=== PATIENT | male | born 1965 | race Two or more races ===

== ENCOUNTER 2019-05-01 23:37 | Emergency (ER) | payer SELFPAY ==
[~2019-05-01] VITALS: Ht 162.6 cm; Wt 136.1 kg
[~2019-05-01 23:37] MED LIST: NKM; ZYRTEC10 MG ORAL
[2019-05-01 23:45] VITALS: BP 162/84
--- NOTE | 2019-05-01 23:45 | NUR ---
ED Nurse Note: Patient walked in to ED c/o abdominal pain, nausea and vomiting S/P ETOH yesterday at 2200. Reports epigastric pain. Denies diarrhea. No episodes of vomiting at this time. Afebrile. Not in any distress.
--- NOTE | 2019-05-01 23:55 | NUR ---
ED Nurse Note: IV line established. Blood and urine specimen collected and sent to lab.
[2019-05-02] MEDS ORDERED: Pantoprazole Inj IV ONE
--- NOTE | 2019-05-02 00:01 | Emergency Room Report ---
History of Present Illness General Chief Complaint: Abdominal Pain Source: Patient Present Illness HPI This is a 54-year-old male who is an alcoholic. He has been in rehab before. He presents with complaint is abdominal pain with nausea and vomiting. Last drink was 4 hours prior to arrival. He complained of epigastric pain and rating to the throat. Multiple episode of vomiting. Pain is sharp and burning. Pain is 8 out of 10. No diarrhea. No trauma. Similar symptom in the past. No other drug use. Allergies: Coded Allergies: No Known Allergies (Unverified , 08/26/12) Patient History Past Medical History: see triage record, old chart reviewed Past Surgical History: none Pertinent Family History: none Social History: Reports: alcohol use Immunizations: other Reviewed Nursing Documentation: PMH: Agreed; PSxH: Agreed Nursing Documentation-PMH Past Medical History: No History, Except For Review of Systems Eye: Denies: eye pain, blurred vision ENT: Denies: ear pain, nose congestion, throat swelling Respiratory: Denies: cough, shortness of breath Cardiovascular: Denies: chest pain, palpitations Gastrointestinal: Reports: abdominal pain, nausea, vomiting; Denies: diarrhea Musculoskeletal: Denies: back pain, joint pain Skin: Denies: rash Neurological: Denies: headache, numbness Endocrine: Denies: increased thirst, increased urine Hematologic/Lymphatic: Denies: easy bruising All Other Systems: negative except mentioned in HPI Physical Exam Vital Signs Date Time Temp Pulse Resp B/P (MAP) Pulse Ox O2 Delivery O2 Flow Rate FiO2 05/01/19 23:39 99.1 112 14 162/84 (110) 97 Room Air Vitals with high blood pressure Sp02 EP Interpretation: reviewed, normal General Appearance: well appearing, no apparent distress, alert Head: normocephalic, atraumatic Eyes: bilateral eye PERRL, bilateral eye EOMI ENT: hearing grossly normal, normal pharynx Neck: full range of motion, supple, no meningismus Respiratory: chest non-tender, lungs clear, normal breath sounds Cardiovascular #1: regular rate, rhythm, no murmur Gastrointestinal: normal bowel sounds, no mass, no organomegaly, no bruit, non- distended, tenderness - Epigastric, mild Musculoskeletal: back normal, normal range of motion, gait/station normal Psychiatric: mood/affect normal Medical Decision Making Diagnostic Impression: Primary Impression: Abdominal pain Qualified Codes: R10.13 - Epigastric pain Additional Impressions: Nausea & vomiting Qualified Codes: R11.2 - Nausea with vomiting, unspecified Alcohol abuse Diabetes Qualified Codes: E11.9 - Type 2 diabetes mellitus without complications ER Course Patient presents with epigastric pain with nausea and vomiting. This is probably secondary to alcoholic gastritis. Pain is improved. No longer vomiting. He did say that he had a history of diabetes but not on medication. There is no evidence of DKA or severe dehydration. We will put him on medication for this. No evidence of acute abdomen. We discharged home. Last Vital Signs Date Time Temp Pulse Resp B/P (MAP) Pulse Ox O2 Delivery O2 Flow Rate FiO2 05/01/19 23:39 99.1 112 14 162/84 (110) 97 Room Air Status: improved Disposition: HOME, SELF-CARE Condition: Stable Scripts Metformin Hcl* (GLUCOPHAGE*) 500 Mg Tablet 500 MG ORAL TWICE A DAY, #60 TAB Prov: Henrik Norris MD 05/02/19 Chlordiazepoxide (Chlordiazepoxide HCl) 25 Mg Capsule 25 MG ORAL THREE TIMES A DAY, #21 CAP 0 Refills Prov: Henrik Norris MD 05/02/19 Omeprazole Magnesium (PRILOSEC OTC) 20 Mg Tablet. 20 MG ORAL DAILY, #30 TAB Prov: Henrik Norris MD 05/02/19 Referrals: NOT CHOSEN CRISTO/,REFERRING (PCP) Additional Instructions: Follow-up with in 7 days. Go to rehab for alcohol abuse. Return if symptoms worsen. Henrik Norris MD May 02, 2019 00:01
[2019-05-02 00:25] LABS: APPEARANCE,URINE CLEAR; BILIRUBIN, URINE NEGATIVE (NEGATIVE); COLOR,URINE PALE YELLOW; GLUCOSE, URINE (UA) 4+ (NEGATIVE); KETONES,URINE NEGATIVE (NEGATIVE); LEUKOCYTE ESTERASE ,URINE NEGATIVE (NEGATIVE); NITRITE,URINE NEGATIVE (NEGATIVE); PH,URINE 6 (4.5-8.0); PROTEIN,URINE NEGATIVE (NEGATIVE); UROBILINOGEN,URINE NORMAL MG/DL (0.0-1.0)
[2019-05-02 00:32] LABS: BASOPHILS % (AUTO) 1.7 % (0.0-2.0); EOSINOPHILS % (AUTO) 2.1 % (0.0-3.0); HEMATOCRIT 44.3 % (42.0-52.0); HEMOGLOBIN 15.5 G/DL (14.2-18.0); LYMPHOCYTES % (AUTO) 40.2 % (20.0-45.0); MEAN CORPUSCULAR VOLUME 87 FL (80-99); MONOCYTES % (AUTO) 8.1 % (1.0-10.0); NEUTROPHILS % (AUTO) 47.9 % (45.0-75.0); PLATELET COUNT 177 K/UL (150-450); RED CELL DISTRIBUTION WIDTH 12.1 % (11.6-14.8); WHITE BLOOD COUNT 7.6 K/UL (4.8-10.8)
[2019-05-02 00:36] LABS: ANION GAP 13 mmol/L (5-15); BLOOD UREA NITROGEN 13 mg/dL (7-18); CALCIUM 8.8 MG/DL (8.5-10.1); CARBON DIOXIDE 23 MMOL/L (21-32); CHLORIDE 102 MMOL/L (98-107); CREATININE 0.9 MG/DL (0.55-1.30); POTASSIUM 3.7 MMOL/L (3.5-5.1); SODIUM 138 MMOL/L (136-145)
[2019-05-02 00:41] LABS: ALANINE AMINOTRANSFERASE 52 U/L (12-78); ALBUMIN 3.6 G/DL (3.4-5.0); ALBUMIN/GLOBULIN RATIO 0.9 (1.0-2.7); ALKALINE PHOSPHATASE 207 U/L (46-116); ASPARTATE AMINO TRANSFERASE 16 U/L (15-37); BILIRUBIN,TOTAL 0.3 MG/DL (0.2-1.0)
[2019-05-02] MEDS ORDERED: LIBRIUM25 MG ORAL (01:30)
[2019-05-02] MEDS ORDERED: PRILOSEC OTC20 MG ORAL (01:30)
[2019-05-02] MEDS ORDERED: GLUCOPHAGE500 MG ORAL (01:30)
[2019-05-02] MEDS ORDERED: chlordiazePOXIDE 25mg Cap ONE (01:33)
[2019-05-02 01:38] VITALS: BP 135/78
--- NOTE | 2019-05-02 01:38 | NUR ---
ED Nurse Note: Pt cleared by ERMD for discharge. DC instructions/prescription was given and explained to pt and verbalized understanding of teachings. All medical deviecs such as ID band and IV line removed. Pt is AAO x4, ambulatory and left with all personal belongings. Accompanied by his .
[2019-05-02] MEDS ORDERED: chlordiazePOXIDE 25mg Cap ORAL ONE (01:45)
== END 2019-05-02 01:38 | disposition home or self-care (01) ==
LOC: EMR 23:53
DX: R10.13 Epigastric pain (principal); R11.2 Nausea with vomiting, unspecified; F10.10 Alcohol abuse, uncomplicated; E11.9 Type 2 diabetes mellitus without complications
CPT/HCPCS: 36415; 80053; 81003; 82962; 83690; 85025; 96361; 96374; 96375; 99284; C9113; J2405; J7030

== ENCOUNTER 2019-08-30 21:47 | Emergency (ER) | payer SELFPAY ==
[~2019-08-30] VITALS: Ht 157.5 cm; Wt 122.5 kg
[~2019-08-30 21:47] MED LIST changes: +GLUCOPHAGE500 MG ORAL; +LIBRIUM25 MG ORAL; +PRILOSEC OTC20 MG ORAL
--- NOTE | 2019-08-30 21:58 | NUR ---
ED Nurse pt presents to ED c/o epigastric pain that radiates to his back and abd. pt reports that he was diagnosed with DM recently and has not been "feeling well" pt has a h/o alcoholism but denies having any drinks for 1 week. pt states he was resting at the time of the pain which he rated a 7/10. 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
--- NOTE | 2019-08-30 22:01 | Emergency Room Report ---
History of Present Illness General Chief Complaint: Chest Pain Present Illness HPI Patient is a 54-year-old male presents after increased chest discomfort. Onset of symptoms 3 days ago. Intermittent episodes. These were improved with exertion. Reports having some increased anxious thoughts. Previous history of alcohol abuse. He states he has not had any alcohol for 1 month. Denies any vomiting or hematemesis. Denies any bloody stools. Pain begins in the upper abdomen and goes up to his chest. Denies any diarrhea. Denies any recent sick contacts. 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 Allergies: Coded Allergies: No Known Allergies (Unverified , 08/26/12) COVID-19 Screening Contact w/high risk pt: No Recent Travel to affected area: No Experienced COVID-19 symptoms?: No COVID-19 Testing performed REGISTERED DENTAL ASSISTANT: No Patient History Past Medical History: see triage record Reviewed Nursing Documentation: PMH: Agreed; PSxH: Agreed Nursing Documentation-PMH Hx Diabetes: Yes Review of Systems All Other Systems: negative except mentioned in HPI Physical Exam Vital Signs Date Time Temp Pulse Resp B/P (MAP) Pulse Ox O2 Delivery O2 Flow Rate FiO2 08/30/19 21:50 99.1 152/82 (105) Room Air Sp02 EP Interpretation: reviewed, normal General Appearance: normal inspection, well appearing, no apparent distress, alert, GCS 15, non-toxic, obese Head: atraumatic ENT: normal ENT inspection, hearing grossly normal, normal voice Neck: normal inspection, full range of motion, supple, no bony tend Respiratory: normal inspection, lungs clear, normal breath sounds, no respiratory distress, no retraction, no wheezing Cardiovascular #1: regular rate, rhythm, no edema Gastrointestinal: normal inspection, normal bowel sounds, non tender, soft, no guarding, no hernia Genitourinary: no CVA tenderness Musculoskeletal: normal inspection, back normal, normal range of motion Neurologic: alert, motor strength/tone normal, 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 Differential diagnosis include was not limited to myocardial infarction, alcohol withdrawal, gastritis, pancreatitis among others. Because of complexity of patient's case laboratory tests and imaging studies were ordered.Patient was noted to have initial oxygen saturation 100%. Denies any cough or respiratory symptoms suggesting this is a nonpulmonary origin. Patient has no exertional dyspnea and patient symptoms appear to be anxiety related. Laboratory testing was ordered to evaluate for possible pancreatitis due to a previous history of alcohol abuse. Patient appears to be low risk for cardiac chest pain based on history. Troponin was noted to be negative despite 3 days of constant pain. Patient's pain appears to be GI related due to a recent alcohol. Patient was noted to have some elevation his blood sugar and was advised dietary modification. He was advised to follow-up with his primary care physician for recheck and further cardiac work-up. He was advised to return if began having worsening pain persistent vomiting or other concerns. The patient is advised to follow up with primary care doctor in 1-2 days. Patient is advised to return if any worsening condition or if any changes in status that are concerning. This report is dictated with [employer] directory carrier software which may occasionally lead to discrepancies related to use of this software. Labs Test 08/30/19 22:11 08/30/19 22:45 White Blood Count 7.9 K/UL (4.8-10.8) Red Blood Count 5.15 M/UL (4.70-6.10) Hemoglobin 15.3 G/DL (14.2-18.0) Hematocrit 47.2 % (42.0-52.0) Mean Corpuscular Volume 92 FL (80-99) Mean Corpuscular Hemoglobin 29.7 PG (27.0-31.0) Mean Corpuscular Hemoglobin Concent 32.4 G/DL (32.0-36.0) Red Cell Distribution Width 13.6 % (11.6-14.8) Platelet Count 200 K/UL (150-450) Mean Platelet Volume 8.5 FL (6.5-10.1) Neutrophils (%) (Auto) 54.1 % (45.0-75.0) Lymphocytes (%) (Auto) 33.6 % (20.0-45.0) Monocytes (%) (Auto) 8.8 % (1.0-10.0) Eosinophils (%) (Auto) 1.3 % (0.0-3.0) Basophils (%) (Auto) 2.3 % (0.0-2.0) Sodium Level 140 MMOL/L (136-145) Potassium Level 3.4 MMOL/L (3.5-5.1) Chloride Level 104 MMOL/L (98-107) Carbon Dioxide Level 24 MMOL/L (21-32) Anion Gap 12 mmol/L (5-15) Blood Urea Nitrogen 19 mg/dL (7-18) Creatinine 1.1 MG/DL (0.55-1.30) Estimat Glomerular Filtration Rate > 60 mL/min (>60) Glucose Level 183 MG/DL (74-106) Calcium Level 8.4 MG/DL (8.5-10.1) Total Bilirubin 0.2 MG/DL (0.2-1.0) Aspartate Amino Transf (AST/SGOT) 34 U/L (15-37) Alanine Aminotransferase (ALT/SGPT) 115 U/L (12-78) Alkaline Phosphatase 141 U/L (46-116) Troponin I 0.000 ng/mL (0.000-0.056) Total Protein 7.4 G/DL (6.4-8.2) Albumin 4.2 G/DL (3.4-5.0) Globulin 3.2 g/dL Albumin/Globulin Ratio 1.3 (1.0-2.7) Lipase 173 U/L (73-393) Urine Color Pale yellow Urine Appearance Clear Urine pH 6 (4.5-8.0) Urine Specific [place] 1.025 (1.005-1.035) Urine Protein 1+ (NEGATIVE) Urine Glucose (UA) 3+ (NEGATIVE) Urine Ketones Negative (NEGATIVE) Urine Blood 1+ (NEGATIVE) Urine Nitrite Negative (NEGATIVE) Urine Bilirubin Negative (NEGATIVE) Urine Urobilinogen Normal MG/DL (0.0-1.0) Urine Leukocyte Esterase Negative (NEGATIVE) Urine RBC 0-2 /HPF (0 - 0) Urine WBC 0 /HPF (0 - 0) Urine Squamous Epithelial Cells None /LPF (NONE/OCC) Urine Bacteria None /HPF (NONE) EKG Diagnostic Results Rate: normal - 76 Rhythm: NSR ST Segments: no acute changes Last Vital Signs Date Time Temp Pulse Resp B/P (MAP) Pulse Ox O2 Delivery O2 Flow Rate FiO2 20 21:50 99.1 152/82 (105) Room Air Status: improved Disposition: HOME, SELF-CARE Condition: Stable Scripts Lorazepam* (ATIVAN*) 0.5 Mg Tablet 0.5 MG ORAL THREE TIMES A DAY for anxiety, #10 TAB Prov: Scott Rosenbaum MD 08/30/19 Omeprazole Magnesium (PRILOSEC OTC) 20 Mg Tablet. 20 MG ORAL DAILY, #20 TAB Prov: Scott Rosenbaum MD 08/30/19 Scott Rosenbaum MD Aug 30, 2019 22:01
[2019-08-30] MEDS ORDERED: Dicyclomine HCl 10mg/5ml oral soln ORAL ONE (22:30)
[2019-08-30] MEDS ORDERED: Mylanta II UD 30ml ORAL ONE (22:30)
[2019-08-30] MEDS ORDERED: Lidocaine 2% Visc 15ml soln ORAL ONE (22:30)
--- NOTE | 2019-08-30 22:35 | NUR ---
all blood work sent to lab. PO meds administered, pt tolerated well. urinal at bedside for urine collection when pt is able to provide a sample
[2019-08-30 22:48] LABS: BASOPHILS % (AUTO) 2.3 % (0.0-2.0); EOSINOPHILS % (AUTO) 1.3 % (0.0-3.0); HEMATOCRIT 47.2 % (42.0-52.0); HEMOGLOBIN 15.3 G/DL (14.2-18.0); LYMPHOCYTES % (AUTO) 33.6 % (20.0-45.0); MEAN CORPUSCULAR VOLUME 92 FL (80-99); MONOCYTES % (AUTO) 8.8 % (1.0-10.0); NEUTROPHILS % (AUTO) 54.1 % (45.0-75.0); PLATELET COUNT 200 K/UL (150-450); RED BLOOD COUNT 5.15 M/UL (4.70-6.10); RED CELL DISTRIBUTION WIDTH 13.6 % (11.6-14.8); WHITE BLOOD COUNT 7.9 K/UL (4.8-10.8)
[2019-08-30 22:55] LABS: ANION GAP 12 mmol/L (5-15); BLOOD UREA NITROGEN 19 mg/dL (7-18); CALCIUM 8.4 MG/DL (8.5-10.1); CARBON DIOXIDE 24 MMOL/L (21-32); CHLORIDE 104 MMOL/L (98-107); CREATININE 1.1 MG/DL (0.55-1.30); POTASSIUM 3.4 MMOL/L (3.5-5.1); SODIUM 140 MMOL/L (136-145)
[2019-08-30 22:58] LABS: ALANINE AMINOTRANSFERASE 115 U/L (12-78); ALBUMIN 4.2 G/DL (3.4-5.0); ALBUMIN/GLOBULIN RATIO 1.3 (1.0-2.7); ALKALINE PHOSPHATASE 141 U/L (46-116); ASPARTATE AMINO TRANSFERASE 34 U/L (15-37); BILIRUBIN,TOTAL 0.2 MG/DL (0.2-1.0)
[2019-08-30] MEDS ORDERED: ATIVAN0.5 MG ORAL (23:04)
[2019-08-30] MEDS ORDERED: PRILOSEC OTC20 MG ORAL (23:04)
[2019-08-30 23:12] LABS: APPEARANCE,URINE CLEAR; BILIRUBIN, URINE NEGATIVE (NEGATIVE); COLOR,URINE PALE YELLOW; GLUCOSE, URINE (UA) 3+ (NEGATIVE); KETONES,URINE NEGATIVE (NEGATIVE); LEUKOCYTE ESTERASE ,URINE NEGATIVE (NEGATIVE); PH,URINE 6 (4.5-8.0); PROTEIN,URINE 1+ (NEGATIVE); UROBILINOGEN,URINE NORMAL MG/DL (0.0-1.0)
[2019-08-30 23:15] LABS: NITRITE,URINE NEGATIVE (NEGATIVE)
[2019-08-31] VITALS: BP 146/88
--- NOTE | 2019-08-31 00:10 | NUR ---
ER DISCHARGE NOTE: Patient is cleared to be discharged per ERMD, pt is aox4, on room air, with stable vital signs. pt was given dc and prescription instructions, pt was able to verbalize understanding, pt id band and iv site removed without complications. pt is able to ambulate with steady gait. pt took all belongings.
[2019-08-31 00:15] VITALS: BP 146/88
--- NOTE | 2019-08-31 12:19 | Diagnostic Imaging Report ---
Procedure: XRAY Chest 1v Reason for study: Chest pain Comparison films: 03/15/2019. FINDINGS: A single one view chest is obtained. Vascularity is normal. The lung archer are clear bilaterally. Cardiac and mediastinal silhouette are within normal limits. CP angles are sharp. The bony thorax appear unremarkable. IMPRESSION: NO ACUTE CARDIOPULMONARY DISEASE.
== END 2019-08-31 00:15 | disposition home or self-care (01) ==
LOC: EMR 22:21
DX: R07.9 Chest pain, unspecified (principal); E11.9 Type 2 diabetes mellitus without complications; E66.9 Obesity, unspecified; Z68.42 Body mass index [BMI] 45.0-49.9, adult
CPT/HCPCS: 36415; 71045; 80053; 81003; 83690; 84484; 85025; 93005; 99283

== ENCOUNTER 2020-02-08 04:22 | Emergency (ER) | payer SELFPAY ==
[~2020-02-08] VITALS: Ht 157.5 cm; Wt 117.9 kg
[~2020-02-08 04:22] MED LIST changes: +ATIVAN0.5 MG ORAL
--- NOTE | 2020-02-08 04:40 | NUR ---
ED Nurse Note: Patient walked in from home c/o midepigastric abdominal pain for 3 days, aching 10/09. Patient reports it is worsened at night when lying supine. Patient aao x 4 and ambulatory with steady gait. Patient also reports decreased appetite, denies n/v/d. Patient changed into gown and placed on monitoring engineer. No acute distress noted during assessment.
--- NOTE | 2020-02-08 04:43 | Emergency Room Report ---
History of Present Illness General Chief Complaint: Abdominal Pain Source: Patient Present Illness HPI Patient is a 54-year-old male past medical history of diabetes who presents to the ER complaining of epigastric pain for the past 2 days. Patient denies any fever or chills. She denies any nausea or vomiting. She denies any dysuria or diarrhea. He states that he did not take any medications for this pain. He says is worse when eating. Patient states that he had a cold and cough which resolved 4 days ago. He denies having any chest pain or shortness of breath. Allergies: Coded Allergies: No Known Allergies (Unverified , 08/26/12) COVID-19 Screening Contact w/high risk pt: No Recent Travel to affected area: No Experienced COVID-19 symptoms?: No COVID-19 Testing performed PACKAGING INSPECTOR: No Patient History Reviewed Nursing Documentation: PMH: Agreed; PSxH: Agreed Nursing Documentation-[facility] Past Medical History: No History, Except For Hx Diabetes: Yes Review of Systems All Other Systems: negative except mentioned in HPI Physical Exam Vital Signs Date Time Temp Pulse Resp B/P (MAP) Pulse Ox O2 Delivery O2 Flow Rate FiO2 02/08/20 04:30 98.2 94 16 140/98 (112) 96 Room Air Sp02 EP Interpretation: reviewed, normal General Appearance: no apparent distress, alert, GCS 15, non-toxic Head: normocephalic, atraumatic Eyes: bilateral eye normal inspection, bilateral eye PERRL ENT: hearing grossly normal, normal pharynx, no angioedema, normal voice Neck: full range of motion, supple/symm/no masses Respiratory: chest non-tender, lungs clear, normal breath sounds, speaking full sentences Cardiovascular #1: regular rate, rhythm, no edema Gastrointestinal: other - Epigastric tenderness to palpation with no guarding or rebound Rectal: deferred Genitourinary: no CVA tenderness Musculoskeletal: normal range of motion 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 Patient also has history of flulike symptoms several days ago. Patient's vital signs are stable. Patient has been given IV fluids as well as 40 mg of IV Protonix. On reevaluation he states that his pain has improved. Patient's labs demonstrate no significant acute abnormalities. Patient has no elevated white blood cell count. Lipase is normal. LFTs are normal. UA demonstrates no evidence for UTI. Troponin is negative x1. Chest x-ray demonstrates no acute cardiopulmonary pathology. Patient is COVID-19 negative. EKG demonstrates no ST elevation. Patient is pending a CT of the abdomen pelvis to rule out any acute intra-abdominal patholo gy. Patient signed out to Dr. Tony at [address], reevaluation and final disposition. Laboratory Tests Test 02/08/20 04:37 02/08/20 04:55 02/08/20 04:58 02/08/20 05:36 White Blood Count 6.6 K/UL (4.8-10.8) Red Blood Count 5.48 M/UL (4.70-6.10) Hemoglobin 16.5 G/DL (14.2-18.0) Hematocrit 46.8 % (42.0-52.0) Mean Corpuscular Volume 85 FL (80-99) Mean Corpuscular Hemoglobin 30.1 PG (27.0-31.0) Mean Corpuscular Hemoglobin Concent 35.2 G/DL (32.0-36.0) Red Cell Distribution Width 14.3 % (11.6-14.8) Platelet Count 239 K/UL (150-450) Mean Platelet Volume 8.0 FL (6.5-10.1) Neutrophils (%) (Auto) 56.2 % (45.0-75.0) Lymphocytes (%) (Auto) 33.5 % (20.0-45.0) Monocytes (%) (Auto) 7.9 % (1.0-10.0) Eosinophils (%) (Auto) 0.8 % (0.0-3.0) Basophils (%) (Auto) 1.7 % (0.0-2.0) Prothrombin Time 11.3 SEC (9.30-11.50) Prothrombin Time INR 1.0 (0.9-1.1) Activated Partial Thromboplast Time 26 SEC (23-33) Sodium Level 140 MMOL/L (136-145) Potassium Level 3.5 MMOL/L (3.5-5.1) Chloride Level 104 MMOL/L (98-107) Carbon Dioxide Level 28 MMOL/L (21-32) Anion Gap 8 mmol/L (5-15) Blood Urea Nitrogen 16 mg/dL (7-18) Creatinine 1.0 MG/DL (0.55-1.30) Estimated Glomerular Filtration Rate > 60 mL/min (>60) Glucose Level 161 MG/DL (74-106) H Lactic Acid Level Pending Calcium Level 8.7 MG/DL (8.5-10.1) Magnesium Level 1.9 MG/DL (1.8-2.4) Total Bilirubin 0.6 MG/DL (0.2-1.0) Aspartate Amino Transferase (AST) 35 U/L (15-37) Alanine Aminotransferase (ALT) 90 U/L (12-78) H Alkaline Phosphatase 114 U/L (46-116) Troponin I Pending Total Protein 7.6 G/DL (6.4-8.2) Albumin 4.0 G/DL (3.4-5.0) Globulin 3.6 g/dL Albumin/Globulin Ratio 1.1 (1.0-2.7) Lipase 136 U/L (73-393) Acetone Level Pending Urine Color Yellow Urine Appearance Clear Urine pH 7 (4.5-8.0) Urine Specific [place] 1.015 (1.005-1.035) Urine Protein 2+ (NEGATIVE) H Urine Glucose (UA) Negative (NEGATIVE) Urine Ketones 1+ (NEGATIVE) H Urine Blood Negative (NEGATIVE) Urine Nitrite Negative (NEGATIVE) Urine Bilirubin Negative (NEGATIVE) Urine Urobilinogen Normal MG/DL (0.0-1.0) Urine Leukocyte Esterase Negative (NEGATIVE) Urine RBC 0-2 /HPF (0 - 0) H Urine WBC 0 /HPF (0 - 0) Urine Squamous Epithelial Cells None /LPF (NONE/OCC) Urine Bacteria None /HPF (NONE) Urine Opiates Screen Negative (NEGATIVE) Urine Barbiturates Screen Negative (NEGATIVE) Phencyclidine (PCP) Screen Negative (NEGATIVE) Urine Amphetamines Screen Negative (NEGATIVE) Urine Benzodiazepines Screen Negative (NEGATIVE) Urine Cocaine Screen Negative (NEGATIVE) Urine Marijuana (THC) Screen Negative (NEGATIVE) POC Whole Blood Glucose 156 MG/DL (74-106) H Venous Blood pH 7.430 Venous Blood Partial Pressure CO2 38.6 Venous Blood Partial Pressure O2 46 Venous Blood HCO3 25 Venous Blood Base Excess 0.9 Venous Blood Carboxyhemoglobin 1.3 % (0.5-1.5) Methemoglobin 0.4 Microbiology Date/Time Source Procedure Growth Status 02/08/20 04:55 Nasopharynx SARS-CoV-2 RdRp Gene Assay - Final Complete EKG Diagnostic Results Troponin ordered: Yes When was troponin ordered?: Feb 08, 2020 EKG Time: 04:44 EP Interpretation: Rubi Michael MD Rate: normal - 94 bpm Rhythm: NSR ST Segments: no acute changes ASA given to the pt in ED: No Rhythm Strip Diag. Results Rhythm Strip Time: 05:14 EP Interpretation: yes Rate: 82 bpm Rhythm: NSR, no PVC's, no ectopy Chest X-Ray Diagnostic Results Chest X-Ray Diagnostic Results : Chest X-Ray Ordered: Yes # of Views/Limited/Complete: 1 View Indication: Other - cough EP Interpretation: Yes Interpretation: no consolidation, no effusion, no pneumothorax, no acute cardiopulmonary disease Impression: No acute disease Electronically Signed by: Rubi Michael MD Last Vital Signs Date Time Temp Pulse Resp B/P (MAP) Pulse Ox O2 Delivery O2 Flow Rate FiO2 02/08/20 04:30 98.2 94 16 140/98 (112) 96 Room Air Signed Out To: Dr. Alanis at 0600 Additional Instructions: Please note that this report is being documented using [employer] technology. This can lead to erroneous entry secondary to incorrect interpretation by the dictating instrument. Rubi Michael M.D. Feb 08, 2020 04:43
[2020-02-08] MEDS ORDERED: Pantoprazole Inj IVP ONE (04:45)
[2020-02-08 05:08] VITALS: BP 140/85
[2020-02-08 05:28] LABS: BASOPHILS % (AUTO) 1.7 % (0.0-2.0); EOSINOPHILS % (AUTO) 0.8 % (0.0-3.0); HEMATOCRIT 46.8 % (42.0-52.0); HEMOGLOBIN 16.5 G/DL (14.2-18.0); LYMPHOCYTES % (AUTO) 33.5 % (20.0-45.0); MEAN CORPUSCULAR VOLUME 85 FL (80-99); MONOCYTES % (AUTO) 7.9 % (1.0-10.0); NEUTROPHILS % (AUTO) 56.2 % (45.0-75.0); PLATELET COUNT 239 K/UL (150-450); RED BLOOD COUNT 5.48 M/UL (4.70-6.10); RED CELL DISTRIBUTION WIDTH 14.3 % (11.6-14.8); WHITE BLOOD COUNT 6.6 K/UL (4.8-10.8)
[2020-02-08 05:35] LABS: APPEARANCE,URINE CLEAR; BILIRUBIN, URINE NEGATIVE (NEGATIVE); GLUCOSE, URINE (UA) NEGATIVE (NEGATIVE); KETONES,URINE 1+ (NEGATIVE); LEUKOCYTE ESTERASE ,URINE NEGATIVE (NEGATIVE); NITRITE,URINE NEGATIVE (NEGATIVE); PH,URINE 7 (4.5-8.0); PROTEIN,URINE 2+ (NEGATIVE); UROBILINOGEN,URINE NORMAL MG/DL (0.0-1.0)
[2020-02-08 05:39] LABS: ANION GAP 8 mmol/L (5-15); BLOOD UREA NITROGEN 16 mg/dL (7-18); CALCIUM 8.7 MG/DL (8.5-10.1); CARBON DIOXIDE 28 MMOL/L (21-32); CHLORIDE 104 MMOL/L (98-107); POTASSIUM 3.5 MMOL/L (3.5-5.1); SODIUM 140 MMOL/L (136-145)
[2020-02-08 05:45] LABS: ALANINE AMINOTRANSFERASE 90 U/L (12-78); ALBUMIN/GLOBULIN RATIO 1.1 (1.0-2.7); ALKALINE PHOSPHATASE 114 U/L (46-116); ASPARTATE AMINO TRANSFERASE 35 U/L (15-37); BILIRUBIN,TOTAL 0.6 MG/DL (0.2-1.0)
--- NOTE | 2020-02-08 05:45 | NUR ---
ED Nurse Note: Patient taken to CT in stable condition
[2020-02-08 05:49] LABS: COLOR,URINE YELLOW
--- NOTE | 2020-02-08 06:42 | Diagnostic Imaging Report ---
EXAM: CT Abdomen and Pelvis Without Intravenous Contrast CLINICAL HISTORY: PAIN TECHNIQUE: Axial computed tomography images of the abdomen and pelvis without intravenous contrast. CTDI is 11.00 mGy and DLP is 602.30 mGy-cm. One or more of the following dose reduction techniques were used: automated exposure control, adjustment of the mA and/or kV according to patient size, use of iterative reconstruction technique. COMPARISON: No relevant prior studies available. FINDINGS: Lung bases: There are incompletely imaged nodular opacities at the right lung base. The appearance is suggestive of an inflammatory/infectious process. ABDOMEN: Liver: Unremarkable. Gallbladder and bile ducts: Unremarkable. No calcified stones. No ductal dilation. Pancreas: Unremarkable. No ductal dilation. Spleen: Unremarkable. No splenomegaly. Adrenals: Unremarkable. No mass. Kidneys and ureters: Unremarkable. No obstructing stones. No hydronephrosis. Stomach and bowel: Unremarkable. No obstruction. No mucosal thickening. PELVIS: Appendix: Normal appendix. Bladder: Unremarkable. No stones. Reproductive: Unremarkable as visualized. ABDOMEN and PELVIS: Intraperitoneal space: Unremarkable. No free air. No significant fluid collection. Bones/joints: No acute fracture. No dislocation. Soft tissues: There is a small fat-containing left inguinal hernia. Vasculature: Unremarkable. No abdominal aortic aneurysm. Lymph nodes: Unremarkable. No enlarged lymph nodes. IMPRESSION: 1. Incompletely imaged nodular opacities at the right lung base. The appearance is suggestive of an inflammatory/infectious process. 2. No acute abnormality in the abdomen and pelvis.
--- NOTE | 2020-02-08 07:05 | NUR ---
HAND-OFF: Report given to DAVID Wallis and DAVID Joyce.
[2020-02-08] MEDS ORDERED: ZITHROMAX250 MG ORAL (07:08)
[2020-02-08] MEDS ORDERED: RANITIDINE HCL150 MG ORAL (07:08)
--- NOTE | 2020-02-08 07:21 | NUR ---
ED Nurse Note: received report from sarah enriquez. pt resting in bed, nad noted, vss.
[2020-02-08 07:29] VITALS: BP 136/79
--- NOTE | 2020-02-08 07:29 | NUR ---
ED Nurse Note: Pt cleared by health care Provider for discharge. DC instructions/prescription was given and explained to pt and verbalized understanding of teachings. All medical devices such as ID band removed. Pt is AAO x4, ambulatory and left with all personal belongings.
--- NOTE | 2020-02-08 13:06 | Diagnostic Imaging Report ---
Indication: Reason For Exam: COUGH Technique: Single AP view of the chest. Comparison: Chest radiograph dated 08/30/2019 Findings: The cardiomediastinal silhouette is unchanged in appearance. There is diffuse peribronchial thickening. No airspace dilatation. No pneumothorax or pleural effusion. No acute osseous abnormality. IMPRESSION: Diffuse peribronchial thickening the absence of airspace consolidation, which is nonspecific but can be seen with infectious/inflammatory airways disease in the appropriate clinical context.
== END 2020-02-08 07:38 | disposition home or self-care (01) ==
LOC: EMR 04:42
DX: R10.13 Epigastric pain (principal); E11.9 Type 2 diabetes mellitus without complications
CPT/HCPCS: 36415; 71045; 74176; 80053; 80307; 81003; 82009; 82803; 82962; 83605; 83690; 83735; 84484; 85025; 85610; 85730; 87040; 93005; 96361; 96374; 99284; C9113; J7030; U0002